=== PATIENT | female | born 1995 | race Caucasian/White ===

== ENCOUNTER 2020-05-04 12:27 | Emergency (ER) | payer OTHER ==
[~2020-05-04] VITALS: Ht 160 cm; Wt 59.0 kg
[2020-05-04 12:30] VITALS: Ht 160 cm; Wt 59.0 kg
[2020-05-04 14:04] VITALS: BP 122/82
== END 2020-05-04 14:04 | disposition home or self-care (01) ==
LOC: ED 12:27
DX: T40.411A Poisoning by fentanyl or fentanyl analogs, accidental (unintentional), initial encounter (principal); Z98.890 Other specified postprocedural states; Z90.89 Acquired absence of other organs; Y92.89 Other specified places as the place of occurrence of the external cause